=== PATIENT | male | born 1995 | race Caucasian/White ===

== ENCOUNTER 2018-01-05 15:39 | Inpatient (IN) | payer OTHER, MEDICAID ==
--- NOTE | 2018-01-05 17:19 | ED ---
General Adult HPI - General Source: patient, RN notes reviewed Mode of arrival: ambulatory Limitations: no limitations <Antonio Weiner - Last Filed: 01/05/18 20:25> <Davis Gonzalez - Last Filed: 01/05/18 21:41> - General Chief complaint: Psychiatric Symptoms Stated complaint: depression/poss strep throat Time Seen by Provider: 01/05/18 16:50 - History of Present Illness Initial comments: Chief complaint history of present illness is a 22-year-old male here with a complaint of anxiety depression and suicidal thoughts for the past 2 days. Denies any specific reason for the beginning of these problems. He lives with his grandmother for the past 2 months. His parents 6 months ago. Patient reports she quit school semester last week. Denies taking any medications denies ever having had previous diagnosis of depression. No specific plan is to how he would hurt himself but he doesn't want to do anything that's stupid. (Antonio Weiner) - Related Data Home Medications Medication Instructions Recorded Confirmed Buprenorphine HCl/Naloxone HCl 0.5 film SL BID 01/05/18 01/05/18 [Suboxone 8 mg-2 mg Sl Film] Dextroamphetamine/Amphetamine 10 mg PO BID 01/05/18 01/05/18 [Adderall] Sertraline [Zoloft] 50 mg PO DAILY 01/05/18 01/05/18 clonazePAM [KlonoPIN] 0.5 mg PO BID 01/05/18 01/05/18 diphenhydrAMINE HCL [Benadryl] 25 - 50 mg PO QID PRN 01/05/18 01/05/18 Allergies Allergy/AdvReac Type Severity Reaction Status Date / Time No Known Allergies Allergy Verified 01/05/18 16:47 Review of Systems ROS Other: All systems not noted in ROS Statement are negative. <Antonio Weiner - Last Filed: 01/05/18 20:25> ROS Other: All systems not noted in ROS Statement are negative. <Davis Gonzalez - Last Filed: 01/05/18 21:41> ROS Statement: Those systems with pertinent positive or pertinent negative responses have been documented in the HPI. Review of systems. Denying any headache or visual acuity changes no chest pain shortness breath GI/ problems. Decreased appetite. Psychologically the patient reports she is depressed for the past 2 days anxious. Suicidal without specific plan. All systems are reviewed. Past medical problems none. Surgeries none. Family history no mental health issues or cancers. Patient denies any ALLERGIES he does smoke cigarettes encouraged to stop denies alcohol use. Denies drug use. (Antonio Weiner) Past Medical History Past Medical History: No Reported History History of Any Multi-Drug Resistant Organisms: None Reported Additional Past Surgical History / Comment(s): heart co-arctation at Past Psychological History: Anxiety, Depression Smoking Status: Current every day smoker Past Alcohol Use History: None Reported Past Drug Use History: None Reported <Antonio Weiner - Last Filed: 01/05/18 20:25> General Exam Limitations: no limitations <Antonio Weiner - Last Filed: 01/05/18 20:25> <CarlosDavis barrera - Last Filed: 01/05/18 21:41> - General Exam Comments Initial Comments: General: The patient is awake and alert, flat affect, appears sad depressed. States he is suicidal without specific plan. Ongoing for just 2 days. Vital signs temperature 98.6 pulse 94 respiratory rate 18 pulse ox 97% room air blood pressure 132/70 Eye: Pupils are equal, round and reactive to light, extra-ocular movements are intact ; there is normal conjunctiva bilaterally. No signs of icterus. Ears, nose, mouth and throat: There are moist mucous membranes and no oral lesions. Neck: The neck is supple, there is no tenderness . Cardiovascular: There is a regular rate and rhythm. No murmur, rub or gallop is appreciated. Respiratory: Lungs are clear to auscultation, respirations are non-labored, breath sounds are equal. No wheezes, stridor, rales, or rhonchi. Gastrointestinal: Soft, non-distended, non-tender abdomen without masses or organomegaly noted. There is no rebound or guarding present. No CVA tenderness. Bowel sounds are unremarkable. Back: There is no tenderness to palpation in the midline. There is no obvious deformity. No rashes noted. Musculoskeletal: Normal ROM, no tenderness, There is no pedal edema. There is no calf tenderness or swelling. Sensation intact. Pulses equal bilaterally 2+. Neurological: CN II-XII intact, There are no obvious motor or sensory deficits. Coordination appears grossly intact. Speech is normal. Skin: Skin is warm and dry and no rashes or lesions are noted. Psychiatric: Cooperative, flat affect, depressed, suicidal without specific plan getting worse over the last several days. Denies any triggers. Denies any insight as to why he is so depressed. (Antonio Weiner) Course <Antonio Weiner - Last Filed: 01/05/18 20:25> <Davis Gonzalez - Last Filed: 01/05/18 21:41> Vital Signs 01/05/18 01/05/18 16:16 19:08 Temperature 98.6 F Pulse Rate 94 Respiratory 18 18 Rate Blood Pressure 132/70 O2 Sat by Pulse 97 Oximetry I met with the patient, he admits to suicidal ideation, met with a [facility] RN, Cert completed and [facility] is currently working on his admission process (Davis Gonzalez) Medical Decision Making <Antonio Weiner - Last Filed: 01/05/18 20:25> <Davis Gonzalez - Last Filed: 01/05/18 21:41> - Medical Decision Making Patient was evaluated by psychiatric nurse. [place] trying to arrange transfer to the other facility. The patient denies taking any medications but his urine triage drug screen was positive for benzodiazepines and cocaine. (Antonio Weiner) - Lab Data Lab Results 01/05/18 01/05/18 Range/Units 17:27 17:57 Salicylates <1.0 mg/dL Urine Opiates Screen Not Detected (NotDetected) Ur Oxycodone Screen Not Detected (NotDetected) Urine Methadone Screen Not Detected (NotDetected) Ur Propoxyphene Screen Not Detected (NotDetected) Acetaminophen <10.0 ug/mL Ur Barbiturates Screen Not Detected (NotDetected) U Tricyclic Antidepress Not Detected (NotDetected) Ur Phencyclidine Scrn Not Detected (NotDetected) Ur Amphetamines Screen Not Detected (NotDetected) U Methamphetamines Scrn Not Detected (NotDetected) U Benzodiazepines Scrn Detected H (NotDetected) Urine Cocaine Screen Detected H (NotDetected) U Marijuana (THC) Screen Not Detected (NotDetected) Disposition <Antonio Weiner - Last Filed: 01/05/18 20:25> - Out of Hospital Transfer - Req. Specs Out of Hospital Transfer - Requested Specifics: Other Non-Acute (Psych facility in [facility]) <Davis Gonzalez - Last Filed: 01/05/18 21:41> Clinical Impression: Suicidal ideation Disposition: OTHER INSTITUTION NOT DEFINED Condition: Good Referrals: Nonstaff,Physician [Primary Care Provider] - 1-2 days
[2018-01-05 17:47] LABS: Acetaminophen <10.0 ug/mL; Salicylate <1.0 mg/dL
[2018-01-05 18:18] LABS: Amphetamine Screen,Urine Not Detected (NotDetected); Barbiturate Screen,Urine Not Detected (NotDetected); Benzodiazepines Screen,Urine Detected (NotDetected); Cocaine Screen,Urine Detected (NotDetected); Methadone Screen, Urine Not Detected (NotDetected); Opiate Screen,Urine Not Detected (NotDetected); Oxycodone Screen, Urine Not Detected (NotDetected); Phencyclidine Screen,Urine Not Detected (NotDetected); Tricyclic Antidepressant,Urine Not Detected (NotDetected); Urn Cannabinoid Scrn Not Detected (NotDetected)
[2018-01-05] MEDS ORDERED: LORazepam 1 MG TAB PO STA ×2 (20:24→22:49)
[2018-01-05] MEDS ORDERED: NICOTINE 21MG/24HR PATCH TRANSDERM STA (21:41)
[2018-01-05] MEDS ORDERED: MAG HYDROX/AL HYDROX/SIMETH 30 ML CUP PO PRN (23:08)
[2018-01-05] MEDS ORDERED: ZIPRASIDONE 20 MG VIAL IM PRN (23:08)
[2018-01-05] MEDS ORDERED: LORazepam 1 MG TAB PO PRN (23:08)
[2018-01-05] MEDS ORDERED: MAGNESIUM HYDROXIDE 2,400 MG/10 ML CUP PO PRN (23:08)
[2018-01-05] MEDS: ACETAMINOPHEN TAB 325 MG TAB PO PRN (23:53)
[2018-01-05] MEDS ORDERED: BENZOCAINE/MENTHOL LOZENG 1 EACH LOZENGE MUCOUS MEM PRN (23:59)
[2018-01-05] MEDS ORDERED: guaiFENesin 600 MG TABLET.ER PO PRN (23:59)
--- NOTE | 2018-01-06 00:09 | P.MDCNMH ---
History of Present Illness H&P Date: 01/06/18 Chief Complaint: Suicidal ideation This is a 22-year-old male no significant past medical history no home medications, who was admitted due to worsening depression and suicidal ideation. Patient states that the symptoms develop over the last 2 weeks in the prior to this he hadn't had any psychiatric diagnosis nor that he was ever 3 to the psychiatric institution or taking any medications for mood. Also he doesn't did not follow he does not see any psychiatrist. She states that for the last 2 weeks due to some stressors he believes his been having some worsening depressed mood, decreased interest in usual daily activities sleep disturbances decreased appetite and he's been having some thoughts off hurting himself but he would not much specified. He is aware that this is wrong and he feels that that stupid and he wouldn't proceed with this ideation but anyways he proceeded to surgical Evelin was admitted to the psychiatric mental health unit to emergency department. He denies any history of diabetes asthma or any other medical problems. His only problem otherwise include sore throat that started about 3 days ago and been stable insulin improvement since then and also feeling of irritation and dryness and dry cough. No nasal congestion or sinus pressure. He's been having some night sweats for this 3 days and chills but no cecilia fever. No neck swelling or difficulty swallowing no wheezing or shortness of breath or aerations. No sick contacts. No muscle aches or body. He is in monogamous relationship with his girlfriend and has never been tested for any STDs nor has any history of STDs. Review of Systems Constitutional: Reports chills, Reports fatigue, Reports malaise, Reports night sweats, Reports poor appetite Ears, nose, mouth and throat: Reports sore throat, Denies dysphagia, Denies headache, Denies hoarseness, Denies nasal congestion, Denies nasal discharge, Denies neck fullness/pressure, Denies odynophagia, Denies post-nasal drip, Denies sinus pain, Denies sinus pressure Respiratory: Reports as per HPI Gastrointestinal: Denies abdominal pain, Denies change in bowel habits, Denies dyspepsia, Denies heartburn, Denies jaundice Genitourinary: Denies discharge, Denies dysuria Musculoskeletal: Denies arm numbness/tingling, Denies myalgias Integumentary: Denies rash Neurological: Denies headaches, Denies hearing difficulties, Denies migraines, Denies numbness Psychiatric: Reports as per HPI Endocrine: Denies cold intolerance, Denies heat intolerance Hematologic/Lymphatic: Denies lymphadenopathy Past Medical History Past Medical History: No Reported History History of Any Multi-Drug Resistant Organisms: None Reported Past Surgical History: No Surgical Hx Reported Additional Past Surgical History / Comment(s): heart co-arctation at Past Psychological History: Anxiety, Depression Smoking Status: Current every day smoker Past Alcohol Use History: None Reported Past Drug Use History: None Reported Medications and Allergies Home Medications Medication Instructions Recorded Confirmed Type Buprenorphine HCl/Naloxone HCl 0.5 film SL BID 01/05/18 01/05/18 History [Suboxone 8 mg-2 mg Sl Film] Dextroamphetamine/Amphetamine 10 mg PO BID 01/05/18 01/05/18 History [Adderall] Sertraline [Zoloft] 50 mg PO DAILY 01/05/18 01/05/18 History clonazePAM [KlonoPIN] 0.5 mg PO BID 01/05/18 01/05/18 History diphenhydrAMINE HCL [Benadryl] 25 - 50 mg PO QID PRN 01/05/18 01/05/18 History Allergies Allergy/AdvReac Type Severity Reaction Status Date / Time No Known Allergies Allergy Verified 01/05/18 16:47 Physical Exam Vitals: Vital Signs Temp Pulse Pulse Resp BP BP Pulse Ox 01/05/18 23:42 99.4 F 93 18 136/84 01/05/18 22:59 89 18 125/65 99 01/05/18 19:08 18 01/05/18 16:16 98.6 F 94 18 132/70 97 Intake and Output 01/05/18 01/05/18 01/06/18 14:59 22:59 06:59 Other: Weight 61.235 kg 61.689 kg Patient Weight 01/06/18 06:59 Weight 61.689 kg - Constitutional General appearance: cooperative, no acute distress, thin - EENT Eyes: EOMI, PERRLA, no scleral icterus ENT: pharyngeal erythema, tonsillar exudates, tonsillar swelling - Neck Neck: no lymphadenopathy - Respiratory Respiratory: bilateral: CTA - Cardiovascular Rhythm: regular Heart sounds: normal: S1, S2 - Gastrointestinal General gastrointestinal: no organomegaly, soft, no tenderness - Neurologic Neurologic: CNII-XII intact - Psychiatric Psychiatric: A&O x's 3 Cranial Nerve Examination - Cranial Nerves Cranial Nerve II- Optic: Intact Cranial Nerve III- Oculomotor: Intact Cranial Nerve IV- Trochlear: Intact Cranial Nerve V- Trigeminal: Intact Cranial Nerve - Abducens: Intact Cranial Nerve VII- Facial: Intact Cranial Nerve VIII- Auditory: Intact Cranial Nerve IX- Glossopharyngeal: Intact Cranial Nerve X- Vagus: Intact Cranial Nerve XI- Accessory: Intact Cranial Nerve XII- Hypoglossal: Intact Results Labs: Abnormal Lab Results - Last 24 Hours (Table) 01/05/18 Range/Units 17:57 U Benzodiazepines Scrn Detected H (NotDetected) Urine Cocaine Screen Detected H (NotDetected) Assessment and Plan (1) Tonsillopharyngitis Narrative/Plan: Throat swab for rapid streps/culture ordered Doubt flu Consider checking Monospot test HIV screening order Symptomatic treatment with Cepacol Lozenges and Mucinex Current Visit: Yes Status: Acute Priority: High Code(s): J03.90 - ACUTE TONSILLITIS, UNSPECIFIED; J02.9 - ACUTE PHARYNGITIS, UNSPECIFIED SNOMED Code(s ): 78107873 (2) Suicidal ideation Narrative/Plan: Psychiatric evaluation Hospitalized at mental health unit Suicidal precaution Usual blood work to include TSH CBC and CMP pending Current Visit: Yes Status: Acute Code(s): R45.851 - SUICIDAL IDEATIONS SNOMED Code(s): 7871267 Time with Patient: Greater than 30
[2018-01-06] MEDS ORDERED: clonazePAM 0.5 MG TAB PO SCH (09:00)
[2018-01-06] MEDS: NICOTINE POLACRILEX 2 MG GUM BUCCAL PRN ×5 (09:05→21:14)
--- NOTE | 2018-01-06 09:16 | P.HP ---
Psychiatric H&P - . H&P Date: 01/06/18 History & Physical: Allergies Allergy/AdvReac Type Severity Reaction Status Date / Time No Known Allergies Allergy Verified 01/05/18 16:47 Vital Signs Temp 97.6 F 01/06/18 06:42 Pulse 73 01/06/18 06:42 Resp 16 01/06/18 06:42 BP 105/69 01/06/18 06:42 Pulse Ox 99 01/05/18 22:59 Intake & Output 01/05/18 01/06/18 01/06/18 18:59 06:59 18:59 Weight 61.235 kg 61.689 kg Laboratory Last Values Salicylates <1.0 mg/dL 01/05/18 17:27 Urine Opiates Screen Not Detected (NotDetected) 01/05/18 17:57 Ur Oxycodone Screen Not Detected (NotDetected) 01/05/18 17:57 Urine Methadone Screen Not Detected (NotDetected) 01/05/18 17:57 Ur Propoxyphene Screen Not Detected (NotDetected) 01/05/18 17:57 Acetaminophen <10.0 ug/mL 01/05/18 17:27 Ur Barbiturates Screen Not Detected (NotDetected) 01/05/18 17:57 U Tricyclic Antidepress Not Detected (NotDetected) 01/05/18 17:57 Ur Phencyclidine Scrn Not Detected (NotDetected) 01/05/18 17:57 Ur Amphetamines Screen Not Detected (NotDetected) 01/05/18 17:57 U Methamphetamines Scrn Not Detected (NotDetected) 01/05/18 17:57 U Benzodiazepines Scrn Detected (NotDetected) H 01/05/18 17:57 Urine Cocaine Screen Detected (NotDetected) H 01/05/18 17:57 U Marijuana (THC) Screen Not Detected (NotDetected) 01/05/18 17:57 01/06/18 08:58 Identification: Delbert Gonsales is a 22 years old single white male living in [facility]. He was admitted to [facility] on under a voluntary application since he reported of having depression and suicide thoughts. History of present illness: Patient is evasive and not a good historian. He said he has been having suicidal thoughts for the last 2 days which started spontaneously without any triggers. He said he has depression since age 12. It is continuous and gets worse at times from 2-5 days. This happens without triggers. Symptoms of depression include having "suicidal thoughts/tendencies" , apathy and isolating himself. He said the anxiety started at the age of 8 and it is also continuous. He said he gets panic attacks 2-3 times a day lasting from 15-20 minutes. He said he talks to his mother to abort the "panic attacks". He said he has difficulty in falling and staying asleep. He denies any issues with his anger management. He denies hallucinations unusual thinking etc. Previous psychiatric history/drug and alcohol abuse: He said he was in psychiatric hospitals twice a day age of 15 or 16 he did he does not go to mental health center or see a psychiatrist. He said he sees a family doctor who had prescribed him Adderall Suboxone Zoloft and Benadryl on a when necessary basis. He said he was abusing opioids for 6-1 year until about 1-1/2 years ago. He said he was swallowing 4-6 small Vicodin's per day. He said he has been taking Adderall for ADHD since age 11. ADHD did not cause any issues with learning or discipline. The symptoms of ADHD was he was staying to himself. He denies abusing alcohol. He said these days he has been taking only Suboxone and nothing else. His drug screening is positive for cocaine and benzodiazepines. It is negative for stimulants and other substances of abuse. Previous medical history: He is not ALLERGIC to any medication. He does not have any physical problems. He did not have any surgery. Asked Social history: He said he quit the school in 10th grade since he was dating a girl which was more important for him than going to school. He said he is doing online studies for high school graduation these days. While in the school he did not have any issues with discipline or learning. He played baseball. He was raised well by his parents. He was not abused. Currently he lives with his grandmother. He said he is not working. He could not tell me how he supports himself. He said he does not eat much has a roof over his shoulder and does not have many needs. 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 He has [employer] health insurance through his father. He was not in the service. He was raised as Amish but he does not believe in God or go to latter-day. He denies having any legal problems now or in the past. He is heterosexual. He has a new girlfriend. He does not have any children. Family history: He denies any history of physical or psychiatric problems in the family Mental status examination: This is a thin ambulatory white male with adequate hygiene. He was laying down when I tried to bring him for the examination. I had to call him multiple times and had to wait about 20 minutes before he came for examination. He is evasive and does not provide good history. He does not show any psychomotor agitation or retardation. His speech is short and goal directed. His mood is euthymic to angry and affect gets increased in intensity when he gets angry. He denies suicidal and homicidal thoughts. He denies hallucinations and delusional thinking. He is well oriented. He is able to recall 2 out of 3 items after 5 minutes. He is able to name the last 4 presidents correctly including their first middle and last names. He is able to spell house but he is unable to spell it backwards. Once he started with S0U and then he said EOUH and then he gave up. He is able to say 8+7 is 15 and a 7 is 56 without any difficulty. His insight is poor and judgment is impaired as evidenced by his substance abuse, and not providing good history, coming to seek mental health treatment out of his has been to area, not seeing a psychiatrist even though the [facility] of his home, she knows very well about him. Diagnostic impression: Rule out Unspecified anxiety disorder F 41.9. 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 NKDA. Treatment plan: He already had his physical examination. He will receive milieu therapy group therapy individual therapy occupational therapy recreational therapy and medication education. Since he said he is not currently suicidal and has no plans to hurt himself he will not need suicide supervision. He agreed to try trazodone 50 mg at bedtime to help him with sleep and Klonopin 0.25 mg 3 times a day on a when necessary basis for anxiety. Discharge with outpatient follow-up. Treatment goals: He will continue to be free of suicide thoughts. He will learn better coping skills. His mood will be stable. Estimated length of stay: 2-5 days.
[2018-01-06 11:02] LABS: Appearance,Urine Clear (Clear); Bilirubin,Urine Negative (Negative); Blood,Urine Trace (Negative); Color,Urine Yellow; Glucose,Urine (UA) Negative (Negative); Ketones,Urine Negative (Negative); Leukocyte Esterase,Urine Negative (Negative); Mucus,Urine Occasional /hpf; Nitrite,Urine Negative (Negative); Protein,Urine Negative (Negative); RBC,Urine 1 /hpf (0-5); Specific Gravity,Urine 1.011 (1.001-1.035); Urobilinogen,Urine <2.0 mg/dL (<2.0); WBC,Urine <1 /hpf (0-5)
[2018-01-06 11:10] LABS: Basophils # (A) 0.1 k/uL (0-0.2); Basophils % (A) 1 %; Eosinophils # (A) 0.3 k/uL (0-0.7); Eosinophils % (A) 2 %; HCT 42.6 % (39.0-53.0); HGB 13.9 gm/dL (13.0-17.5); Lymphocytes % (A) 12 %; MCH 28.9 pg (25.0-35.0); MCHC 32.7 g/dL (31.0-37.0); MCV 88.4 fL (80.0-100.0); Mean Platelet Volume 6.4; Monocytes # (A) 1.1 k/uL (0-1.0); Monocytes % (A) 7 %; Neutrophils # (A) 12.6 k/uL (1.3-7.7); Neutrophils % (A) 77 %; Platelet Count 339 k/uL (150-450); RBC 4.82 m/uL (4.30-5.90); RDW 12.6 % (11.5-15.5); WBC 16.4 k/uL (3.8-10.6)
[2018-01-06 11:36] LABS: ALT 19 U/L (21-72); AST 20 U/L (17-59); Albumin 3.7 g/dL (3.5-5.0); Alkaline Phosphatase 79 U/L (38-126); Anion Gap 11 mmol/L; Blood Urea Nitrogen 7 mg/dL (9-20); Calcium 9.7 mg/dL (8.4-10.2); Carbon Dioxide 29 mmol/L (22-30); Chloride 102 mmol/L (98-107); Cholesterol 131 mg/dL (<200); Glucose 91 mg/dL (74-99); HDL Cholesterol 39 mg/dL (40-60); LDL Cholesterol,Calculated 78 mg/dL (0-99); Potassium 4.6 mmol/L (3.5-5.1); Sodium 142 mmol/L (137-145); Total Bilirubin 0.4 mg/dL (0.2-1.3); Total Protein 6.2 g/dL (6.3-8.2); Triglycerides 69 mg/dL (<150)
[2018-01-06] MEDS: ACETAMINOPHEN TAB 325 MG TAB PO PRN (13:52)
[2018-01-06] MEDS ORDERED: AZITHROMYCIN 500 MG TAB PO STA (15:18)
[2018-01-06] MEDS ORDERED: BENZOCAINE/MENTHOL LOZENG 1 EACH LOZENGE MUCOUS MEM PRN (16:09)
[2018-01-06] MEDS ORDERED: IBUPROFEN 400 MG TAB PO PRN (16:11)
[2018-01-06 18:17] LABS: Hemoglobin A1C 5.2 % (4.0-6.0)
[2018-01-06] MEDS: clonazePAM 0.5 MG TAB PO PRN (18:47)
[2018-01-06] MEDS ORDERED: traZODone HCL 50 MG TAB PO SCH (21:00)
[2018-01-07] MEDS: clonazePAM 0.5 MG TAB PO PRN ×3 (07:04→21:50)
[2018-01-07] MEDS: AZITHROMYCIN 250 MG TAB PO SCH (09:32)
--- NOTE | 2018-01-07 11:33 | P.PN ---
Progress Note - Text Progress Note Date: 01/07/18 Patient was seen for a routine follow-up examination. He usually sleeps a lot in the morning hours and is awake and alert rest of the day. He attend some of his groups. His TSH level is low and T4 is not reported. His nurse is concerned about it and a T4 level is ordered. The social media assistant and insurance person reported that patient has not been complying with outpatient treatment has been barred from several [facility] for noncompliance with treatment and he has been going to different hospitals seeking admission stating that he is suicidal. Today patient said he did not sleep well last night and he agreed to increase trazodone 200 mg at bedtime. He plans on staying with his father in [place] and continue with his computer studies for GED. He is treated with antibiotics for pharyngitis. This is a white thin ambulatory male with adequate hygiene. He is polite and cooperative. He does not show any psychomotor agitation or retardation. His speech is spontaneous relevant and goal-directed. His mood is euthymic and affect is appropriate to the thought content. He denies hallucinations, delusional thinking, suicidal and homicidal ideas. He is well oriented with adequate memory concentration etc. Plan: Increase trazodone 200 mg at bedtime, check T4 level and continue groups and other therapies. Consider discharging him tomorrow.
[2018-01-07] MEDS: NICOTINE POLACRILEX 2 MG GUM BUCCAL PRN ×3 (12:02→20:16)
[2018-01-07 14:39] VITALS: BMI 19.5
[2018-01-07] MEDS ORDERED: traZODone HCL 100 MG TAB PO SCH (21:00)
[2018-01-08 07:00] VITALS: BP 109/57; PULSE 65; RESP 12; TEMP 97.5
[2018-01-08] MEDS: AZITHROMYCIN 250 MG TAB PO SCH (09:25)
--- NOTE | 2018-01-08 09:54 | P.DS ---
Providers Date of admission: 01/05/18 23:01 Expected date of discharge: 01/08/18 Attending physician: Enriqueta Lyons Consults: 01/05/18 23:08 Consult Physician Routine Consulting Provider: Fela Physician Consult Reason/Comments: h&p and medical follow up Do you want consulting provider notified?: Yes Primary care physician: Physician Nonsta Hospital Course: Patient had psychiatric examination, physical examination and psychosocial evaluation. After psychiatric examination, it was agreed to start him on trazodone 50 mg at bedtime to help him sleep and for reported anxiety symptoms. He said he could not sleep well on 50 mg of trazodone and so it was increased to 100 mg at bedtime. He did well on this dose. He also received Klonopin on a when necessary basis for anxiety and withdrawal symptoms. His TSH level was low and because of the concerns expressed by his nurse T4 level was checked and it was within normal limits. Patient reported of sore throat, the swab showed streptococcal infection and patient was started on Z-Marcial. He also received Motrin and throat lozenges when necessary for pain. His throat infection got better and he became almost asymptomatic. Patient attended his groups, interacted with staff and socialized with peers. He continued to get better and got free of suicide and homicide thoughts. In view of this it was agreed to discharge him. Condition on discharge: This is a white ambulatory male with good hygiene. He is polite, friendly, cheerful and cooperative today. He does not show any psychomotor agitation or retardation. His speech is spontaneous relevant and goal-directed. His mood is cheerful and affect is appropriate. He denies hallucinations, delusional thinking suicidal and homicidal ideas. He is well oriented with adequate memory concentration etc. His insight and judgment seem to have improved. 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 NKDA Pharyngitis. Patient was advised to take his medications as prescribed, not to drink alcohol or use drugs, to learn better coping skills through therapy and anger management classes, not to drive or operate missionary if he feels sleepy, to call his therapist if he gets any thoughts of suicide or homicide and to go to nearest ER if he cannot get hold of his therapist. He agreed with all these recommendations. Patient Condition at Discharge: Stable Plan - Discharge Summary New Discharge Prescriptions: New Azithromycin [Zithromax] 250 mg PO DAILY 2 Days #2 tab traZODone HCL [Desyrel] 100 mg PO HS tab Discontinued diphenhydrAMINE HCL [Benadryl] 25 - 50 mg PO QID PRN PRN Reason: Allergy Symptoms Dextroamphetamine/Amphetamine [Adderall] 10 mg PO BID Buprenorphine HCl/Naloxone HCl [Suboxone 8 mg-2 mg Sl Film] 0.5 film SL BID clonazePAM [KlonoPIN] 0.5 mg PO BID Sertraline [Zoloft] 50 mg PO DAILY Discharge Medication List Azithromycin [Zithromax] 250 mg PO DAILY 2 Days #2 tab 01/08/18 [Rx] traZODone HCL [Desyrel] 100 mg PO HS tab 01/08/18 [Rx] Follow up Appointment(s)/Referral(s): Nonstaff,Physician [Primary Care Provider] - 1-2 days Patient Instructions/Handouts: How to Stop Smoking (GEN) Activity/Diet/Wound Care/Special Instructions: Keep your follow up appointments as scheduled. Continue your medications as prescribed. No alcohol or street drugs. No guns or weapons. Crisis line if needed .
== END 2018-01-08 14:00 | disposition home or self-care (01) | DRG 880 ==
LOC: EC 15:39 → 3MHU 23:01
PROVIDERS: ADMIT Psychiatry & Neurology Psychiatry; ATTEND Psychiatry & Neurology Psychiatry
DX: F41.9 Anxiety disorder, unspecified (principal); F13.20 Sedative, hypnotic or anxiolytic dependence, uncomplicated; R45.851 Suicidal ideations; F60.9 Personality disorder, unspecified; F14.10 Cocaine abuse, uncomplicated; F17.200 Nicotine dependence, unspecified, uncomplicated; F90.9 Attention-deficit hyperactivity disorder, unspecified type; Z91.19 Patient's noncompliance with other medical treatment and regimen; J02.9 Acute pharyngitis, unspecified
CPT/HCPCS: 36415; 80053; 80061; 80306; 81001; 82075; 83036; 83520; 84439; 84443; 85025; 87430; 99285